=== PATIENT | female | born 1935 | race Native Hawaiian/Other Pacific Islander ===

== ENCOUNTER → 2016-12-12 | Outpatient (CLI) | payer MEDICARE, MEDICAID ==
[~2016-12-12] VITALS: Ht 152.4 cm; Wt 68.0 kg
[~2016-12-12] MED LIST: ASPI-1093 PO; ATEN50TA PO; ATOR40TA28 PO; FURO20 PO; GLIM2 PO; LORA10TA7 PO; METF10002 PO; OMEP20 PO; SIMV-261 PO; VALS160T2 PO; VITA1TAB22 PO
[2016-12-12 12:49] VITALS: BP 146/75
== END | disposition home or self-care (01) ==
LOC: SRCNTR 12:30
PROVIDERS: ATTEND Internal Medicine Critical Care Medicine
DX: I10 Essential (primary) hypertension (principal); E11.9 Type 2 diabetes mellitus without complications; C34.90 Malignant neoplasm of unspecified part of unspecified bronchus or lung
CPT/HCPCS: G0463